=== PATIENT | male | born 1940 | race Hispanic/Latino ===

== ENCOUNTER 2023-09-27 08:58 | Emergency (ER) | payer MEDICARE ==
[~2023-09-27] VITALS: Ht 162.6 cm; Wt 65.7 kg
[2023-09-27 09:03] VITALS: BP 213/165
[2023-09-27 09:05] VITALS: BP 177/101
[2023-09-27 09:10] VITALS: BP 194/94
[2023-09-27] MEDS ORDERED: ASPIRINCHW 81MG PO (09:10)
[2023-09-27] MEDS ORDERED: ATORVASTATIN CA10 MG PO (09:10)
[2023-09-27] MEDS ORDERED: CEPHALEXIN500 M1 PO (09:12)
[2023-09-27] MEDS ORDERED: ALL DAY10 MG PO (09:12)
[2023-09-27 09:21] VITALS: BP 194/94
== END 2023-09-27 09:23 | disposition home or self-care (01) ==
LOC: ED 08:58
DX: L03.011 Cellulitis of right finger (principal); E78.5 Hyperlipidemia, unspecified